=== PATIENT | female | born 2000 | race Hispanic/Latino ===

== ENCOUNTER 2019-01-03 08:56 | Emergency (ER) | payer OTHER ==
[2019-01-03 09:39] LABS: APPEARANCE,URINE Clear (CLEAR); BILIRUBIN,URINE Negative (NEGATIVE); COLOR,URINE Yellow (YELLOW); GLUCOSE, URINE (UA) Negative (NEGATIVE); KETONES,URINE Negative (NEGATIVE); LEUKOCYTE ESTERASE ,URINE Negative (NEGATIVE); NITRATE,URINE Negative (NEGATIVE); OCCULT BLOOD,URINE Small (NEGATIVE); PROTEIN,URINE Negative (NEGATIVE)
[2019-01-03 09:50] LABS: HCG,QUAL RESULT NEGATIVE (NEGATIVE)
[2019-01-03 10:20] LABS: BACTERIA,URINE Rare /HPF (None Seen); WBC,URINE None Seen /HPF (0-1)
[2019-01-03] MEDS ORDERED: KETOROLAC TROMETHAMINE 30MG/ML ONE (10:36)
== END 2019-01-03 10:52 | disposition home or self-care (01) ==
LOC: EDH 08:56 → EEVIPCON 08:56 → EDH 10:52
DX: N94.6 Dysmenorrhea, unspecified (principal)
CPT/HCPCS: 81001; 81025; 96372; 99284; J1885